=== PATIENT | male | born 1985 | race Caucasian/White ===

== ENCOUNTER 2018-06-02 09:41 | Emergency (ER) | payer BC ==
[~2018-06-02] VITALS: Ht 175.3 cm; Wt 97.1 kg
[2018-06-02 09:45] VITALS: BP 162/98; PULSE 99; RESP 20; Ht 175.3 cm; Wt 97.1 kg
--- NOTE | 2018-06-02 10:24 | ERD ---
ER Documentation Chief Complaint Chief Complaint 2 day wound check laceration on right 4th finger HPI 33-year-old male presenting with laceration wound check. Patient had a laceration on the volar aspect of his right ring finger 3 days ago. Laceration occurred when a glass bottle broke on his hand. X-ray showed no sign of retained glass. Patient has mild pain at the site. Is right-hand dominant. Denies other medical problems. NKDA. Surgical history denies. Social history denies ROS All systems reviewed and are negative except as per history of present illness. Allergies Allergies: Coded Allergies: No Known Allergy (Unverified , 05/30/18) PMhx/Soc Medical and Surgical Hx: pt denies Medical Hx, pt denies Surgical Hx Hx Alcohol Use: No Hx Substance Use: No Hx Tobacco Use: No Smoking Status: Never smoker FmHx Family History: No diabetes, No coronary disease, No other Physical Exam Vitals Vital Signs Date Temp Pulse Resp B/P (MAP) Pulse Ox O2 O2 Flow FiO2 Time Delivery Rate 06/02/18 98.2 99 20 162/98 100 09:45 (119) Physical Exam GENERAL: The patient is well-appearing, well-nourished, in no acute distress CHEST: Clear to auscultation bilaterally. There are no rales, wheezes or rhonchi. HEART: Regular rate and rhythm. No murmurs, clicks, rubs or gallops. No S3 or S4. EXTREMITIES: Equal pulses bilaterally. There is no peripheral clubbing, cyanosis or edema. No focal swelling or erythema. Full range of motion. Grossly neurovascularly intact. NEUROLOGIC: Motor strength in all 4 extremities with 5 out of 5 strength. Sensation grossly intact. SKIN: Healing laceration site noted on the volar aspect of the right index finger. No dehiscence of the wound. No surrounding erythema or purulence. Procedures/MDM MDM: 33-year-old male presenting for wound check. Patient's wound does not appear to be infected. Patient is able to isolate the DIP and PIP joint without difficulty. Patient is recommended to refrain from wearing splint and told to return in 5 days for suture removal. Patient was told symptoms change or worsen to return the ER. Patient recommended clean with soap and water and keep open. All questions answered at discharge Departure Diagnosis: Primary Impression: Encounter for wound re-check Condition: Stable Patient Instructions: Wound Check, Lac F/U (No Infection) Referrals: [facility] YOU HAVE RECEIVED A MEDICAL SCREENING EXAM AND THE RESULTS INDICATE THAT YOU DO NOT HAVE A CONDITION THAT REQUIRES URGENT TREATMENT IN THE EMERGENCY DEPARTMENT. FURTHER EVALUATION AND TREATMENT OF YOUR CONDITION CAN WAIT UNTIL YOU ARE SEEN IN YOUR DOCTORS OFFICE WITHIN THE NEXT 1-2 DAYS. IT IS YOUR RESPONSIBILITY TO MAKE AN APPOINTMENT FOR FOLOW-UP CARE. IF YOU HAVE A PRIMARY DOCTOR --you should call your primary doctor and schedule an appointment IF YOU DO NOT HAVE A PRIMARY DOCTOR YOU CAN CALL OUR PHYSICIAN REFERRAL HOTLINE AT IF YOU CAN NOT AFFORD TO SEE A PHYSICIAN YOU CAN CHOSE FROM THE FOLLOWING [facility] [address] [facility] [facility] [address] [facility] [facility] [address] [facility] [facility] [facility] [address] [facility] [facility] [address] [facility] [facility]. [address] Additional Instructions: FOLLOW UP WITH YOUR PRIMARY CARE PHYSICIAN TOMORROW.Return to this facility if you are not improving as expected. SHELIA RODRIGUEZ PA-C Jun 02, 2018 10:24
== END 2018-06-02 10:30 | disposition home or self-care (01) ==
LOC: FTE 09:41
DX: Z48.01 Encounter for change or removal of surgical wound dressing (principal)
CPT/HCPCS: 99281